=== PATIENT | female | born 1950 | race Caucasian/White ===

== ENCOUNTER → 2017-11-08 13:45 | Outpatient (CLI) | payer MEDICARE, OTHER | END | disposition home or self-care (01) | LOC: D.MRI 11:30 | DX: M54.5 Low back pain (principal) ==

== ENCOUNTER → 2020-04-16 | Emergency (ER) | payer MEDICARE, OTHER ==
[~2020-04-16] VITALS: Ht 165.1 cm; Wt 91.4 kg
[2020-04-16 01:49] VITALS: Ht 165.1 cm; Wt 91.4 kg
[2020-04-16 02:39] VITALS: BP 209/100
[2020-04-16 02:39] LABS: BASOPHILS 0.3 % (0-2); HEMATOCRIT 42.8 % (36.0-48.0); IMMATURE GRANULOCYTES 0.5 % (0-5); LYMPHOCYTES 31.3 % (15-50); MCH 29.1 pg (26.0-34.0); MCHC 32.7 g/dL (31.0-37.0); MEAN PLATELET VOLUME 9.3 fL (7.4-10.4); MONOCYTES 7.5 % (2-11); NEUTROPHILS 59.4 % (40-80); PLATELET COUNT 304 10x3/uL (130-400); RBC 4.81 10x6/uL (4.00-5.40); RDW 13.6 % (11.5-14.5); WBC 8.8 10x3/uL (4.8-10.8)
[2020-04-16 02:49] LABS: ANION GAP 13.1 mmol/L (8-16); CALCIUM 10.1 mg/dL (8.5-10.1); CARBON DIOXIDE 25.5 mmol/L (21.0-32.0); POTASSIUM - SERUM 3.6 mmol/L (3.5-5.1)
[2020-04-16 02:57] LABS: ALBUMIN 3.7 g/dL (3.4-5.0); BILIRUBIN - TOTAL 0.49 mg/dL (0.2-1.3); PROTEIN - SERUM 8.4 g/dL (6.4-8.2)
== END ==
LOC: D.ER 01:44
PROVIDERS: Family Medicine
DX: R33.9 Retention of urine, unspecified (principal); D49.59 Neoplasm of unspecified behavior of other genitourinary organ; I10 Essential (primary) hypertension